=== PATIENT | female | born 2000 | race Two or more races ===

== ENCOUNTER 2022-10-03 09:05 | Outpatient (CLI) | payer OTHER | END 2022-10-03 09:08 | disposition home or self-care (01) | LOC: LAB 09:05 | DX: R22.1 Localized swelling, mass and lump, neck (principal); H61.20 Impacted cerumen, unspecified ear; Z11.3 Encounter for screening for infections with a predominantly sexual mode of transmission; Z13.89 Encounter for screening for other disorder; Z13.228 Encounter for screening for other metabolic disorders; Z13.220 Encounter for screening for lipoid disorders ==